=== PATIENT | male | born 1990 | race Caucasian/White ===

== ENCOUNTER 2016-05-10 18:20 | Emergency (ER) | payer BC ==
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
[2016-05-10 19:13] LABS: Hematocrit 40.1 % (42.0-52.0); Mean Cell Volume 93.5 fl (78-100); Mean Corpuscular Hemoglobin 32.6 pg (27-31); Mean Corpuscular Hgb Conc 34.9 g/dl (32-36); Mean Platelet Volume 11.8 fl (6.0-9.5); Neutrophil # 8.5 K/mm3 (1.3-6.0); Neutrophil % 78.1 % (42-75.0); Platelet Count 192 K/mm3 (150-450); Red Blood Count 4.29 M/mm3 (4.7-6.0); Red Cell Distribution Width 12.3 % (11.5-14.0); White Blood Count 10.9 K/mm3 (4.0-10.5)
[2016-05-10 19:16] LABS: Albumin * 4.3 gm/dl (3.4-5.0); Anion Gap 13.5 mmol/L (6.8-13.8); Bilirubin, Total 0.3 mg/dL (0.0-1.1); Ca. Corrected For Albumin 8.2 mg/dL (8.4-10.2); Calcium * 8.8 mg/dL (7.9-10.9); Carbon Dioxide 26.3 mmol/L (24-32.6); Potassium 3.8 mmol/L (3.4-4.6); Total Protein 7.2 gm/dL (6.2-8.2)
[2016-05-10 20:41] VITALS: BP 145/72
== END 2016-05-10 19:57 | disposition home or self-care (01) ==
LOC: ER 18:20
DX: S06.0X0A Concussion without loss of consciousness, initial encounter (principal); V29.9XXA Motorcycle rider (driver) (passenger) injured in unspecified traffic accident, initial encounter; R41.0 Disorientation, unspecified